=== PATIENT | female | born 1970 | race Caucasian/White ===

== ENCOUNTER → 2016-04-02 | Outpatient (CLI) | payer BC ==
[~2016-04-02] MED LIST: ASPIRIN 32325 MG/TAB PO; BLOOD PRESSURE MED; CQ 10; GENTAMICIN EYE D5 ML OP; LEVEMIR SQ; NO HOME MEDICATIONS; NOVOLOG 100U100 U/M1 SQ; OMEGA 31000 MG; TAMIFLU 75MG75 MG PO; ZOFRAN ODT4 MG PO; [UNRECOGNIZED DRUG - OTHER]; [UNRECOGNIZED DRUG - OTHER]
== END ==
LOC: COL.RAD 04-01 09:45
DX: N18.9 Chronic kidney disease, unspecified (principal)